=== PATIENT | female | born 1965 | race American Indian/Alaskan Native ===

== ENCOUNTER 2017-02-10 00:22 | Emergency (ER) | payer BC ==
[2017-02-10 00:35] VITALS: O2SAT 98
[2017-02-10] MEDS ORDERED: Sodium Chloride 0.9% 1,000 ML IV STA (01:01)
[2017-02-10] MEDS ORDERED: Dexamethasone 10 MG in Sodium Chloride 0.9% 50 ML IVPB STA (01:03)
[2017-02-10] MEDS ORDERED: Dexamethasone 10 MG in Sodium Chloride 0.9% 50 ML IVP ONE (01:06)
--- NOTE | 2017-02-10 01:06 | ED PDOC ---
HPI: General Adult Time Seen by Provider: 02/10/17 00:31 Chief Complaint (Nursing): ENT Problem History Per: Patient Additional Complaint(s): Pt. states for the past 2 weeks she's had a sore throat. Pt. was initially seen by Dr. Peraza, PMD, but was told she did not require any antibiotics. Pain has been worsening. Denies fever, SOB, rash, abdominal pain, N/V/D. Past Medical History Reviewed: Historical Data, Nursing Documentation, Vital Signs Vital Signs: Last Vital Signs Temp 98.6 F 02/10/17 03:45 Pulse 91 H 02/10/17 03:45 Resp 16 02/10/17 03:45 BP 134/75 02/10/17 03:45 Pulse Ox 98 02/10/17 03:45 - Medical History PMH: Anemia (trace), Arthritis, Diverticulitis - Surgical History Other surgeries: L knee meniscal repair - 02/07/2017 - Family History Family History: States: No Known Family Hx - Home Medications Home Medications: Ambulatory Orders Medication Instructions Recorded Hydrochlorothiazide [HCTZ] 12.5 mg PO DAILY #20 11/25/13 Amoxicillin/Clavulanate [Augmentin 1 tab PO Q8 #30 tab 02/10/17 500 MG-125 MG] Naproxen [Naprosyn] 500 mg PO BID PRN #30 tab 02/10/17 - Allergies Allergies/Adverse Reactions: Allergies Allergy/AdvReac Type Severity Reaction Status Date / Time No Known Allergies Allergy Verified 02/10/17 00:32 Review of Systems ROS Statement: Except As Marked, All Systems Reviewed And Found Negative ENT: Positive for: Throat Pain, Throat Swelling Physical Exam - Physical Exam Appears: Positive for: Well, Non-toxic, No Acute Distress Skin: Positive for: Normal Color, Warm. Negative for: Rash ENT: Positive for: TM Is/Are (non-erythematous, non-bulging b/l), Pharyngeal Erythema, Tonsillar Swelling, Other (L sided tonsillar swelling with moderate erythema without exudate; no trismus; able to swallow saliva). Negative for: Tonsillar Exudate Neck: Positive for: Normal, Painless ROM Cardiovascular/Chest: Positive for: Regular Rate, Rhythm Respiratory: Positive for: Normal Breath Sounds. Negative for: Accessory Muscle Use, Respiratory Distress Gastrointestinal/Abdominal: Positive for: Normal Exam, Soft. Negative for: Tenderness, Organomegaly Neurologic/Psych: Positive for: Alert, Oriented - Laboratory Results Result Diagrams: 02/10/17 01:20 02/10/17 01:20 - ECG O2 Sat by Pulse Oximetry: 98 - Progress ED Course And Treament: Labs ordered. Decadron 10mg IV, unasyn 3mg IV, IV NS bolus x [address] soft tissue neck w/ IV contrast: 1. Findings consistent with acute palatine tonsillitis left greater than right. No definite evidence of well-defined tonsillar abscess. 2. Complete opacification of the left maxillary sinus with enhancement of the mucosa suspicious for acute sinusitis. Clinical correlation recommended. 3. Enlarged bilateral cervical chain lymph nodes nonspecific but likely reactive. Pt. informed of results and instructed to drink plenty of fluids and to f/u with PMD. Pt. states she is feeling much better. Tolerating PO fluids in ED. Disposition - Clinical Impression Clinical Impression: Tonsillitis - Patient ED Disposition Is Patient to be Admitted: No - Disposition Referrals: [facility] [Outside] Disposition: Routine/Home Disposition Time: 03:29 Condition: IMPROVED Prescriptions: Amoxicillin/Clavulanate [Augmentin 500 MG-125 MG] 1 tab PO Q8 #30 tab Naproxen [Naprosyn] 500 mg PO BID PRN #30 tab PRN Reason: Pain Instructions: Tonsillitis (ED) Forms: [employer] (Italian)
[2017-02-10 01:31] LABS: VENOUS BLOOD GAS BASE EXCESS 6.6 mmol/L (0.0-2.0); VENOUS BLOOD GAS PCO2 50 mmHg (40-60); VENOUS BLOOD PH 7.42 (7.32-7.43)
[2017-02-10 01:33] LABS: BASO # 0.1 K/uL (0.0-0.2); BASO % 0.6 % (0.0-2.0); EOS % 0.2 % (0.0-4.0); HEMATOCRIT 34.5 % (34.0-47.0); LYMPH # 2.2 K/uL (1.0-4.3); MEAN CELL VOLUME 81.7 fl (81.0-99.0); MEAN CORPUSCULAR HEMOGLOBIN 25.8 pg (27.0-31.0); MEAN CORPUSCULAR HGB CONC 31.6 g/dL (33.0-37.0); MEAN PLATELET VOLUME 6.6 fl (7.2-11.7); MONO # 0.8 K/uL (0.0-0.8); MONO % 6.4 % (0.0-10.0); NEUT # 8.9 K/uL (1.8-7.0); NEUT % 74.8 % (50.0-75.0); NRBC % 0.1 % (0.0-0.0); RED CELL DISTRIBUTION WIDTH 13.8 % (11.5-14.5)
[2017-02-10 01:39] LABS: ALKALINE PHOSPHATASE 116 U/L (38-126); ALT/SGPT 33 U/L (9-52); AST/SGOT 36 U/L (14-36); BILIRUBIN,TOTAL 0.2 mg/dl (0.2-1.3); BLOOD UREA NITROGEN 10 mg/dl (7-17); CALCIUM 9.1 mg/dL (8.4-10.2); CARBON DIOXIDE 29 mmol/L (22-30); CHLORIDE 102 mmol/L (98-107); GFR AFRICAN-AMERICAN > 60; GLUCOSE,RANDOM 110 mg/dL (65-105); POTASSIUM 4.1 MMOL/L (3.6-5.0); SODIUM 138 mmol/l (132-148); TOTAL PROTEIN 7.5 G/DL (6.3-8.2)
[2017-02-10] MEDS ORDERED: Sodium Chloride 0.9% 50 ML IV ONE (01:55)
[2017-02-10] MEDS ORDERED: Iohexol 300 100 ML IJ ONE (01:55)
[2017-02-10 03:46] VITALS: BP 134/75; PULSE 91; RESP 16; TEMP 98.6
--- NOTE | 2017-02-10 11:30 | CT ---
PROCEDURE: CT NECK WITH CONTRAST HISTORY: L sided sore throat COMPARISON: None TECHNIQUE: CT of the neck with intravenous contrast. Coronal and sagittal reformats generated. Intravenous contrast dose: Omnipaque 300, 95 cc. Radiation dose: DLP 497.55 mGy-cm This CT exam was performed using one or more of the following dose reduction techniques: Automated exposure control, adjustment of the mA and/or kV according to patient size, and/or use of iterative reconstruction technique. FINDINGS: NASOPHARYNX: Unremarkable. SUPRAHYOID NECK: Examination is positive for increased heterogeneous enhancement at the left greater the right tonsillar pillars without definite abscess formation. Edema extends inferiorly at the left side collapsing the left vallecula as well as the piriform sinus. The or pharyngeal airway is deviated toward the right but remains patent. There is no definite abscess identified at this time. INFRAHYOID NECK: Unremarkable larynx, hypopharynx, and supraglottic space. Vocal cords intact. MASS: None. GLANDS: Parotid and submandibular glands unremarkable. Normal size thyroid gland, without nodule. LYMPH NODES: Mild lymphadenopathy is appreciate the jugulodigastric space in the left including 1.8 x 1.3 cm enlarged lymph node. CERVICAL SPINE: Reversal of cervical curvature. VASCULAR STRUCTURES: Unremarkable. OTHER FINDINGS: Left maxillary sinus is completely opacified digit potentially reflecting acute superimposed on chronic sinusitis. IMPRESSION: Findings most compatible with left greater than right tonsillitis without abscess formation. The or pharyngeal airway shifted toward the right but remains patent. Mild jugulodigastric lymphadenopathy is seen at the left neck. Mild edema extends into the left parapharyngeal and upper mid hypopharyngeal local soft tissue.
== END 2017-02-10 03:50 | disposition home or self-care (01) ==
LOC: H.ER 00:22
DX: J03.90 Acute tonsillitis, unspecified (principal)
CPT/HCPCS: 70491; 80053; 82803; 85025; 87040; 87430; 96365; 96375; 99283; J0295; J1100; J7040; Q9967